=== PATIENT | female | born 1990 | race Caucasian/White ===

== ENCOUNTER 2020-02-03 14:29 | Emergency (ER) | payer MEDICAID ==
--- NOTE | 2020-02-03 15:28 | EDM.PDOC ---
ED HPI GENERAL MEDICAL PROBLEM - General Chief Complaint: Abdominal Pain Stated Complaint: ABD PAIN WITH DISCHARGE Time Seen by Provider: 02/03/20 15:00 Source of Information: Reports: Patient History Limitations: Reports: No Limitations - History of Present Illness INITIAL COMMENTS - FREE TEXT/NARRATIVE: Nayana comes into [facility] ED with a 2 mos hx of vague migratory abdominal pain, crampy at times, and not progressive. There is no reported hearburn, gas, belching, food intolerance, nausea, vomiting, diarrhea or constipation. There is occasional vaginal discharge without spotting, and she is currently not sexually active. There are no voiding sxs, hx of stone disease, ETOH or substance abuse. She is visiting from [place] following fathers , and is considering remaining in [place]. - Related Data Allergies Allergy/AdvReac Type Severity Reaction Status Date / Time No Known Allergies Allergy Verified 02/03/20 15:10 Home Meds: Home Meds NK [No Known Home Meds] 02/03/20 [History] ED ROS GENERAL - Review of Systems Review Of Systems: See Below Constitutional: Reports: No Symptoms HEENT: Reports: No Symptoms Respiratory: Reports: No Symptoms Cardiovascular: Reports: No Symptoms Endocrine: Reports: No Symptoms GI/Abdominal: Reports: Abdominal Pain : Reports: Discharge Musculoskeletal: Reports: No Symptoms Skin: Reports: No Symptoms Neurological: Reports: No Symptoms Psychiatric: Reports: Agitation, Mood Lability Hematologic/Lymphatic: Reports: No Symptoms Immunologic: Reports: No Symptoms ED EXAM, GENERAL - Physical Exam Exam: See Below Exam Limited By: Uncooperative General Appearance: Alert, WD/WN, No Apparent Distress, Other (ambivalent, depressed) Eye Exam: Bilateral Eye: EOMI, Normal Inspection, PERRL Ears: Normal External Exam Nose: Normal Inspection Throat/Mouth: Normal Inspection Head: Normocephalic Neck: Normal Inspection Respiratory/Chest: Lungs Clear Cardiovascular: Regular Rate, Rhythm GI/Abdominal: Normal Bowel Sounds, Soft, Non-Tender, No Organomegaly, No Distention, No Mass (Female) Exam: Deferred Rectal (Female) Exam: Deferred Back Exam: Normal Inspection Extremities: Normal Inspection Neurological: Alert, Oriented, CN II-XII Intact Psychiatric: Depressed Mood, Tearful Skin Exam: Warm, Dry, Intact, Normal Color, No Rash Lymphatic: No Adenopathy Course - Vital Signs Text/Narrative:: Patient refused labwork. She ate pizza before arrrival to the ED, so the Abd US was postponed to tomorrow am. Last Recorded V/S: Last Vital Signs Temp 35.6 C L 02/03/20 14:40 Pulse 106 H 02/03/20 14:40 Resp 17 02/03/20 14:40 BP 153/104 H 02/03/20 14:40 Pulse Ox 100 02/03/20 14:40 - Orders/Labs/Meds Orders: Active Orders 24 hr Category Date Time Status Abdomen Comp [US] Stat Exams 02/03/20 15:17 Ordered C-REACTIVE PROTEIN [CHEM] Stat Lab 02/03/20 15:16 Ordered CBC WITH AUTO DIFF [HEME] Stat Lab 02/03/20 15:16 Ordered COMPREHENSIVE METABOLIC PN,CMP [CHEM] Stat Lab 02/03/20 15:16 Ordered HCG QUANTITATIVE [CHEM] Stat Lab 02/03/20 15:16 Ordered UA W/MICROSCOPIC [URIN] Stat Lab 02/03/20 15:16 Ordered Departure - Departure Time of Disposition: 15:33 Disposition: Home, Self-Care 01 Condition: Fair Clinical Impression: Abdominal pain - Discharge Information *PRESCRIPTION DRUG MONITORING PROGRAM REVIEWED*: Not Applicable *COPY OF PRESCRIPTION DRUG MONITORING REPORT IN PATIENT MALCOL[place]: Not Applicable Forms: ED Department Discharge Sepsis Event Note - Focused Exam Vital Signs: Vital Signs Temp Pulse Resp BP Pulse Ox 02/03/20 14:40 35.6 C L 106 H 17 153/104 H 100 Date Exam was Performed: 02/03/20 Time Exam was Performed: 15:28 - Problem List & Annotations (1) Abdominal pain SNOMED Code(s): 02133058 Code(s): R10.9 - UNSPECIFIED ABDOMINAL PAIN Status: Acute Annotation/ Comment:: Abdominal pain with suspected psychosocial agenda, likely marital discord. Patient refuseed labwork, but did consent to an ABD US tomorrow at 9 am. No meds dispensed. - Problem List Review Problem List Initiated/Reviewed/Updated: Yes - My Orders Last 24 Hours: My Active Orders 02/03/20 15:16 C-REACTIVE PROTEIN [CHEM] Stat CBC WITH AUTO DIFF [HEME] Stat COMPREHENSIVE METABOLIC PN,CMP [CHEM] Stat HCG QUANTITATIVE [CHEM] Stat UA W/MICROSCOPIC [URIN] Stat 02/03/20 15:17 Abdomen Comp [US] Stat - Assessment/Plan Last 24 Hours: My Active Orders 02/03/20 15:16 C-REACTIVE PROTEIN [CHEM] Stat CBC WITH AUTO DIFF [HEME] Stat COMPREHENSIVE METABOLIC PN,CMP [CHEM] Stat HCG QUANTITATIVE [CHEM] Stat UA W/MICROSCOPIC [URIN] Stat 02/03/20 15:17 Abdomen Comp [US] Stat Plan: Follow up in am.
== END 2020-02-03 15:39 | disposition home or self-care (01) ==
LOC: FB.ED 14:29
DX: R10.9 Unspecified abdominal pain (principal)
CPT/HCPCS: 99284-25